=== PATIENT | male | born 1935 | race Caucasian/White ===

== ENCOUNTER → 2016-04-28 | Outpatient (CLI) | payer MEDICARE, OTHER ==
[~2016-04-28] VITALS: Ht 177.8 cm; Wt 89.8 kg
[~2016-04-28] MED LIST: NS FLUSH 10 ML PRN IV; NS FLUSH 3 ML PRN IV; ZOLEDRONIC ACID 5 MG/100 ML 100 ML IV ONE
--- NOTE | 2016-04-28 10:52 | NUR ---
Note: 2 unsuccessful IV start attempts in pt's Lt forearm by this nurse prior to successful IV saline lock start by Edson Calloway RN in pt's Rt forearm. Pt did tolerate all attempts well and without complaint.
[2016-04-28 10:55] VITALS: BP 169/74
--- NOTE | 2016-04-28 11:22 | NUR ---
NS Flush by Avelino Dupree RN after medication infusion completed. Patient tolerated all well without complaint.
== END ==
LOC: EUOP 09:54
PROVIDERS: ATTEND Family Medicine
DX: M81.0 Age-related osteoporosis without current pathological fracture (principal)
CPT/HCPCS: 96365; J3489; 36000

== ENCOUNTER → 2016-05-02 | Outpatient (CLI) | payer MEDICARE, OTHER | LOC: RAD 09:45 | PROVIDERS: ATTEND Family Medicine | DX: I65.23 Occlusion and stenosis of bilateral carotid arteries (principal) | CPT/HCPCS: 93880 ==